=== PATIENT | male | born 1960 | race Caucasian/White ===

== ENCOUNTER 2018-06-28 08:02 | Day surgery (SDC) | payer OTHER ==
[~2018-06-28] VITALS: Ht 162.6 cm; Wt 87.9 kg
[~2018-06-28 08:02] MED LIST: ALBU90OI6 INH; ALLO100 PO; ASACOL HD800 MG PO; COLCRYS0.6 MG PO; FINA5 PO; Flovent Disku250 MCG INH; Mesalamine4 GM/60 ML PR; NAPR500EC PO; SUMA5NI; Singulair10 MG PO
--- NOTE | 2018-06-28 09:10 | NUR ---
06/28/18 0910 Radha Rodriguez PT. VERBALIZES BEING WARM ENOUGH, DIDN'T WANT ANOTHER BLANKET AT THIS TIME. CALL LIGHT WITHIN REACH. PER PT. IS IN WAITING ROOM & DIDN'T NEED HER BACK IN HIS ROOM WHILE HE WAS WAITING FOR HIS PROCEDURE OR AFTER HIS PROCEDURE. PT. VERBALIZES HIS IS WORKING ON STUFF IN THE WAITING ROOM.
--- NOTE | 2018-06-28 14:47 | NUR ---
06/28/18 1447 Radha Rodriguez S PT. STARTED RETCHING 1004, PT. ORALLY SUCTIONED FOR SMALL AMT.'S CLEAR SECRETIONS. PT. WITH JAW THRUST TO ASSIST WITH AIRWAY. 4MG IV ZOFRAN GIVEN PER DREagle ORDER. ORS.RXS ALSO IN ROOM ASSISTING WITH PT.'S AIRWAY. SATS DOWN TO 88% DURING RETCHING BUT RIGHT BACK UP WITH JAW THRUST & WHEN PT. STOPPED RETCHING. 1022 PT. STARTED RETCHING AGAIN. PT. ORALLY SUCTIONED FOR SM. AMT. CLEAR SECRETIONS, 4MG IV ZOFRAN GIVEN PER DR. ORDER. AGAIN PT. WITH JAW THRUST TO ASSIST WITH PT.'S AIRWAY, SATS STABLE. PROCEDURE DONE AT 1027, PT.WOKE UP AT 1034. PT. DENIED ANY NAUSEA, PAIN, OR SORETHROAT. PT. INSTRUCTED THAT HE WAS RETCHING DURING PROCEDURE & THAT HIS JAW MIGHT BE SORE SINCE A JAW THRUST WAS PERFORMED TO ASSIST WITH HIS AIRWAY WHILE HE WAS RETCHING.
== END 2018-06-28 11:03 | disposition home or self-care (01) ==
LOC: ORSCSDS 08:02
DX: K50.90 Crohn's disease, unspecified, without complications (principal); D12.3 Benign neoplasm of transverse colon; D12.2 Benign neoplasm of ascending colon; D12.4 Benign neoplasm of descending colon; K63.5 Polyp of colon; K62.1 Rectal polyp; K57.30 Diverticulosis of large intestine without perforation or abscess without bleeding; J45.909 Unspecified asthma, uncomplicated; Z79.899 Other long term (current) drug therapy
CPT/HCPCS: 88305; J2405; J7120

== ENCOUNTER 2022-05-29 10:37 | Day surgery (SDC) | payer BC, OTHER ==
[~2022-05-29] VITALS: Ht 162.6 cm; Wt 86.1 kg
== END 2022-05-29 12:13 | disposition home or self-care (01) ==
LOC: ORSCSDS 10:37
PROVIDERS: Internal Medicine Gastroenterology
PROC: 0DBE8ZX Excision of Large Intestine, Via Natural or Artificial Opening Endoscopic, Diagnostic (ICD-10-PCS; principal; 2022-05-29 11:30)
PROC: 0DBB8ZX Excision of Ileum, Via Natural or Artificial Opening Endoscopic, Diagnostic (ICD-10-PCS; principal; 2022-05-29 11:30)
DX: K52.9 Noninfective gastroenteritis and colitis, unspecified (principal); K50.80 Crohn's disease of both small and large intestine without complications; Z86.010 Personal history of colon polyps; K57.30 Diverticulosis of large intestine without perforation or abscess without bleeding; G47.33 Obstructive sleep apnea (adult) (pediatric); J45.909 Unspecified asthma, uncomplicated; K21.9 Gastro-esophageal reflux disease without esophagitis; Z79.899 Other long term (current) drug therapy
CPT/HCPCS: 88305; J2405; J2704; J7120

== ENCOUNTER 2024-06-02 06:33 | Day surgery (SDC) | payer BC, OTHER ==
[~2024-06-02] VITALS: Ht 162.6 cm; Wt 84.6 kg
[2024-06-02] MEDS ORDERED: propofoL 50 ML IV ONE (07:34)
[2024-06-02] MEDS ORDERED: Lactated Ringer's 1,000 ML IV ONE ×2 (07:34→07:47)
--- NOTE | 2024-06-02 07:50 | NUR ---
06/02/24 0750 Radha Rodriguez PT. DENIES ANY PAIN.
[2024-06-02] MEDS ORDERED: FentaNYL Citrate 50 MCG/ML 2 ML Injection ONE (08:18)
[2024-06-02] MEDS ORDERED: Ondansetron HCl 2 MG / ML 2ML Vial ONE (08:21)
[2024-06-02 09:08] VITALS: BP 128/72
== END 2024-06-02 09:13 | disposition home or self-care (01) ==
LOC: ORSCSDS 06:33
PROVIDERS: Internal Medicine Gastroenterology
PROC: 0DBL8ZX Excision of Transverse Colon, Via Natural or Artificial Opening Endoscopic, Diagnostic (ICD-10-PCS; principal; 2024-06-02 08:00)
DX: K50.90 Crohn's disease, unspecified, without complications (principal); D12.3 Benign neoplasm of transverse colon; K57.30 Diverticulosis of large intestine without perforation or abscess without bleeding; Z86.0101 Personal history of adenomatous and serrated colon polyps; N40.0 Benign prostatic hyperplasia without lower urinary tract symptoms; J45.909 Unspecified asthma, uncomplicated; Z79.899 Other long term (current) drug therapy
CPT/HCPCS: 88305; J2405; J2704; J3010; J7120